=== PATIENT | female | born 1960 | race Caucasian/White ===

== ENCOUNTER 2025-04-04 07:37 | Outpatient (OUT) | payer OTHER, SELFPAY ==
--- NOTE | 2025-04-04 08:10 | PC.NURSE ---
Nursing Note Cardiac Stress Test Reviewed: Medication, allergies and patient history reviewed. Stress Test: [x ] Patient tolerated stress test well. [ ] Patient unable to tolerate walking on treadmill. Switched to Lexiscan stress test. [ x] No chest pain noted per patient [ ] Chest pain that resolved prior to leaving stress lab. [ ] No dyspnea noted. [x] Dyspnea that resolved prior to leaving stress lab. [ x] Patient left stress lab asymptomatic and hemodynamically stable. [ ] Patient taken to the Emergency Room due to non-resolving symptoms following stress test. [x ] Patient achieved target heart rate. [ ] Patient unable to achieve target heart rate. [ ] Aminophylline administered as reversal agent to Lexiscan (Regadenoson). [ ] Nitro administered. Nursing Comments:
--- NOTE | 2025-04-05 12:44 | PM.STRESS ---
Stress Test Stress Test Requesting physician: AVELINO CLAYTON Procedure: Routine treadmill exercise stress test General Information: Reason for Stress Test: [Chest pain, shortness of breath] Cardiac History and Risk Factors: [None listed] Resting 12 - Lead Electrocardiogram: Normal sinus rhythm Normal ECG Stress Test: Protocol: [Brice] Exercise Capacity: [Average] Blood Pressure Response: [Normal resting blood pressure appropriate response to exercise] Rhythm: [Sinus, no significant arrhythmias] ST - Response: [No significant ST-T wave abnormalities] Patient Response: [No chest pain] The patient exercised for 6 minutes and 59 seconds reaching stage 3 of the Brice protocol. Maximum METS 9.90. Resting heart rate 77 bpm increasing to a maximum of 134 bpm which is 85% of maximal predicted heart rate. Resting blood pressure was 112/68 with a peak blood pressure of 144/80. Interpretation: 1. Normal treadmill exercise stress test. 2. No ischemic ST-T wave abnormalities. 3. Appropriate heart rate and blood pressure response to exercise. 4. Morse treadmill score is +6.6. Estimated 1 year mortality: 0.5 to 0.6%. Risk category: Low risk. Angiography: Usually not indicated.
== END 2025-04-04 07:38 | disposition home or self-care (01) ==
PROVIDERS: PCP Family Medicine; Visit Provider Family Medicine
DX: R06.09 Other forms of dyspnea (principal); I25.10 Atherosclerotic heart disease of native coronary artery without angina pectoris; I25.84 Coronary atherosclerosis due to calcified coronary lesion
CPT/HCPCS: 93017

== ENCOUNTER 2025-04-10 07:07 | Outpatient (OUT) | payer OTHER, SELFPAY ==
--- OUTSIDE RECORDS SUMMARY | 2016-02-13 01:32 | XMS_ITS | Encounter Summary ---
Author Organization [facility] Address [address] [place] [address] Care Team Providers Care Cutter Grind Tool Technician Name Role Phone Prasad Melchor MD Primary Care Provider Encounter Details Date Type Department Care Team (Late st Contact Info) Description 02/13/2016 1:32 AM EDT Hospital Encounter [facility] [address] [place], [place] [id number] Prasad Melchor MD [address] [address] Social History Tobacco Use Types Packs/Day Years Used Date Smoking Tobacco: Former Cigarettes Q uit: 11/15/2002 Smokeless Tobacco: Never Comments No Sex and Gender Information Value Date Recorded Sex Assigned at Not on file Legal Sex Female 6:59 PM EST Gender Identity Not on file Sexual Orientation Not on file COVID-19 Exposure Response Date Recorded In the last month, have you been in contact with someone who was confirmed or suspected to have Coronavirus / COVID-19? No / Unsure 09/10/2021 3:51 PM EDT documented as of this encounter Plan of Treatment Not on file documented as of this encounter Procedures Procedure Name Priority Date/Time Associated Diagnosis Comments LIPID PANEL Routine 02/13/2016 9:58 AM EDT COMPREHENSIVE METABOLIC PANEL Routine 02/13/2016 9:58 AM EDT documented in this encounter Results * Lipid Panel (02/13/2016 9:58 AM EDT) Cholesterol 185 <200 mg/dL 02/13/2016 11:22 AM EDT [facility] Comment: Cholesterol Guidelines: <200 Desirable 200-240 Borderline >240 Undesirable HDL 60 >40 mg/dL 02/13/2016 11:22 AM EDT [facility] Comment: HDL Guidelines: <40 Undesirable 40-59 Borderline >59 Desirable LDL Cholesterol 103 0 - 130 mg/dL 02/13/2016 11:22 AM EDT [facility] Comment: LDL Guidelines: <100 Desirable 100-129 Near to/above Desirable 130-159 Borderline >159 Undesirable Direct (measured) LDL and calculated LDL are not interchangeable tests. Chol/HDL Ratio 3.1 <5 02/13/2016 11:22 AM EDT [facility] Comment: Triglycerides 108 <150 mg/dL 02/13/2016 11:22 AM EDT [facility] Comment: Triglyceride Guidelines: <150 Desirable 150-199 Borderline 200-499 High >499 Very high Based on AHA Guidelines for fasting triglyceride, August 2012. Performed at [address] [place] [address] ([phone] VLDL NOT REPORTED 1 - 30 mg/dL [facility] 02/13/2016 9:58 AM EDT 02/13/2016 9:59 AM EDT us Prasad Melchor MD CHEMISTRY ORDERABLES Final R esult [facility] [address] [place] [address], [facility] [phone] [facility] * Comprehensive Metabolic Panel (02/13/2016 9:58 AM EDT) Glucose 88 70 - 99 mg/dL 02/13/2016 11:22 AM EDT [facility] BUN 13 6 - 20 mg/dL 02/13/2016 11:22 AM EDT [facility] Creatinine 0.67 0.50 - 0.90 mg/dL 02/13/2016 11:22 AM EDT [facility] BUN/Creatinine Ratio 19 9 - 20 02/13/2016 11:22 AM EDT [facility] Calcium 9.6 8.6 - 10.4 mg/dL 02/13/2016 11:22 AM EDT [facility] Sodium 142 135 - 144 mmol/L 02/13/2016 11:22 AM EDT [facility] Potassium 5.0 3.7 - 5.3 mmol/L 02/13/2016 11:22 AM EDT [facility] Chloride 104 98 - 107 mmol/L 02/13/2016 11:22 AM EDT [facility] CO2 29 20 - 31 mmol/L 02/13/2016 11:22 AM EDT [facility] Anion Gap 9 9 - 17 mmol/L 02/13/2016 11:22 AM EDT [facility] Alkaline Phosphatase 55 35 - 104 U/L 02/13/2016 11:22 AM EDT [facility] ALT 15 5 - 33 U/L 02/13/2016 11:22 AM EDT [facility] AST 19 <32 U/L 02/13/2016 11:22 AM EDT [facility] Total Bilirubin 0.39 0.3 - 1.2 mg/dL 02/13/2016 11:22 AM EDT [facility] Total Protein 6.7 6.4 - 8.3 g/dL 02/13/2016 11:22 AM EDT [facility] Albumin 4.3 3.5 - 5.2 g/dL 02/13/2016 11:22 AM EDT [facility] Albumin/Globulin Ratio 1.8 1.0 - 2.5 02/13/2016 11:22 AM EDT [facility] GFR Non- >60 >60 mL/min 02/13/2016 11:22 AM EDT [facility] GFR >60 >60 mL/min 02/13/2016 11:22 AM EDT [facility] GFR Comment 02/13/2016 11:22 AM EDT [facility] Comment: Average GFR for 50-59 years old: 93 mL/min/1.73sq m Chronic Kidney Disease: <60 mL/min/1.73sq m Kidney failure: <15 mL/min/1.73sq m GFR Staging 02/13/2016 11:22 AM EDT [facility] Comment: Stage 1: Some kidney damage normal GFR Stage 2: Mild kidney damage GFR 60-89 Stage 3: Moderate kidney damage GFR 30-59 Stage 4: Severe kidney damage GFR 15-29 Stage 5: Severe kidney damage GFR <15 ESRD - chronic treatment by dialysis or transplant Performed at [address] [place] [address] ([phone] 02/13/2016 9:58 AM EDT 02/13/2016 9:59 AM EDT Prasad Melchor MD CHEMISTRY ORDERABLES Final R esult [facility] [address] [place], [place] [id number] [phone] [facility] documented in this encounter Visit Diagnoses Not on filedocumented in this encounter Additional Health Concerns Infection Onset Date Last Indicated Resolved Time COVID-19 (Rule Out) 09/10/2021 09/10/2021 09/10/20 21 5:48 PM EDT documented as of this encounter Care Teams Cutter Grind Tool Technician Relationship Specialty Start Date End Date Prasad Melchor MD PCP - General 10/01/14 documented as of this encounter
--- OUTSIDE RECORDS SUMMARY | 2025-04-02 15:00 | XMS_ITS | Encounter Summary ---
Author Organization [facility] Address [address] [place] [address] Care Team Providers Care Technical Producer Name Role Phone Prasad Melchor MD Primary Care Provider [phone] Reason for Referral * Imaging (Routine) - Authorized Specialty Diagnoses / Procedures Referred By Contac t Referred To Contact Radiology Diagnoses Coronary atherosclerosis due to calcified coronary lesion (CMS/HCC) Dyspnea on exertion Procedures STRESS TEST TREADMILL Prasad Melchor MD 112 [facility] [address] [place] [address] Phone: tel: fax: Referral ID Status Reason Start Date Expiration Date V isits Requested Visits Authorized [id number] Authorized 04/02/2025 09/29/2025 1 1 Reason for Visit * Reason Comments Anxiety Encounter Details Date Type Department Care Team (Late st Contact Info) Description 04/02/2025 3:00 PM EDT Office Visit [facility] [address] [facility] [address] [place] [address] Prasad Melchor MD 112 [facility] [address] [place] [address] (Fax) Anxiety associated with depression (Primary Dx); Degenerative disc disease, cervical; Spondylosis of cervical region without myelopathy or radiculopathy; Spondylosis of lumbar region without myelopathy or radiculopathy; Primary osteoarthritis of right hip; Menopausal and female climacteric states; Stage 2 chronic kidney disease; Screening for diabetes mellitus; Screening, lipid; Coronary atherosclerosis due to calcified coronary lesion (CMS/HCC); Dyspnea on exertion; Abnormal abdominal CT scan; Renal mass, right Social History Tobacco Use Types Packs/Day Years Used Date Smoking Tobacco: Former Cigarettes Q uit: 2001 Smokeless Tobacco: Never Tobacco Cessation:Counseling Given: Yes Alcohol Use Standard Drinks/Week Comments Not Currently 0 (1 standard drink = 0.6 oz pure alcohol) Caffeine intake: 1-2 cups of coffee per day Education Answer Date Recorded What is the highest level of school you have completed or the highest degree you have received? High school graduate 05/26/2023 Comments No Sex and Gender Information Value Date Recorded Sex Assigned at Not on file Legal Sex Female 6:35 PM EDT Gender Identity Not on file Sexual Orientation Not on file documented as of this encounter Last Filed Vital Signs Vital Sign Reading Time Taken Comments Blood Pressure - - Pulse - - Temperature - - Respiratory Rate - - Oxygen Saturation - - Inhaled Oxygen Concentration - - Weight 59.4 kg (131 lb) 04/02/2025 3:00 PM EDT Height 170.2 cm (5' 7 ) 04/02/2025 3:00 PM EDT Body Mass Index 20.52 04/02/2025 3:00 PM EDT documented in this encounter Progress Notes * Prasad Melchor MD - 04/02/2025 3:00 PM EDT Images from the original note were not included. Patient ID: Elsy Loza is a 64 y.o. female who presents for: Anxiety Patient is here for evaluation of anxiety. He/She has the following anxiety symptoms: none. Onset of symptoms was approximately several years ago. Symptoms have been stable since that time. He/She denies current suicidal and homicidal ideation. Family history significant for no psychiatric illness.Possible organic causes contributing are: none. Previous treatment includes medication Prozac and Xanax. He/She complains of the following medication side effects: none. I did have a brief phone call with the patient on Wednesday to review some of her previous diagnostic evaluation in an effort to help her not be as anxious over the weekend. We are formalizing this at today's visit. The left kidney is virtually absent. The right kidney does demonstrate some sort of a mass with stranding at the top. 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 At this point since she is down to 1 kidney and in chronic kidney disease stage 2, we will go ahead and dedicate a renal ultrasound to this for more definitive answer. She also continues to have this dyspnea. It is mostly on exertion and relieved with rest. There wasa problem getting her PFT scheduled. My medical photographer has specifically reached out and talked to the material yard clerk and they will be getting this scheduled. However, she is a previous smoker in the CT scan did clearly demonstrate some coronary atherosclerosis due to calcified coronary lesions. She also has a mild dyslipidemia. At this point in time we will go ahead and pursue exercise stress test. She has not no specific indication for Cardiolite imaging. Review of Systems She is sleeping for the most part when she takes a Flexeril. This helped her significantly she was able to get more comfortable and it did have the side effect of increasing sedation little bit. She was not hung over by the medication. She did not feel that she was at any risk of dysfunction. Objective Appearance: Well-groomed, in no acute distress Abnormal body movements: None Affect: Appropriate and appears to be full range Attention: Good Attitude: Cooperative Degree of awareness of surroundings: Grossly within normal limits Impulse control: Appears to be good Insight: Appears to be good Fund of knowledge; adequate Judgment: Appears to be adequate Perceptual disorders: No perceptual disorders noted Psychomotor activity: Within normal range Speech: Clear, normal variability and rate Thought content: Unremarkable 02/16/2023 12:00 PM 05/27/2023 10:37 AM 10/18/2023 3:17 PM 03/08/2024 8:07 AM 10/02/2024 7:54 AM 02/01/2025 10:01 AM 03/08/2025 10:54 AM Vitals BMI 22.24 kg/m2 20.52 kg/m2 20.52 kg/m2 20.52 kg/m2 20.52 kg/m2 20.52 kg/m2 20.52 kg/m2 BSA (m2) 1.74 m2 1.68 m2 1.68 m2 1.68 m2 1.68 m2 1.68 m2 1.68 m2 Heart Rate 77 SpO2 97 % Temp 99.9 ??F Height (in) 5' 7 5' 7 5' 7 5' 7 5' 7 5' 7 5' 7 Weight (lb) 142 131 131 131 131 131 131 Visit Report Report Report Report Report Report Report No Known Allergies Current Outpatient Medications on File Prior to Visit Medication Sig Dispense Refill albuterol HFA 90 mcg/act inhaler Inhale 2 puffs in the morning and 2 puffs at noon and 2 puffs in the evening and 2 puffs before bedtime. 18 g 0 albuterol HFA 90 mcg/act inhaler Inhale 2 puffs every 4 (four) hours if needed for wheezing or shortness of breath 18 g 0 alpha tocopherol (Vitamin E) 400 units capsule Take 400 Units by mouth in the morning. Ascorbic Acid (vitamin C) 1000 MG tablet Take 1,000 mg by mouth in the morning and 1,000 mg in the evening and 1,000 mg before bedtime. azithromycin (Zithromax) 250 MG tablet Take 2 tablets day one then 1 tablet daily 6 tablet 0 calcium citrate 250 MG tablet Take 250 mg by mouth in the morning and 250 mg in the evening and 250mg before bedtime. cholecalciferol (Vitamin D-3) 50 MCG (2000 UT) tablet Take 1 capsule by mouth Daily cyclobenzaprine (Flexeril) 10 MG tablet Take 1 tablet (10 mg) by mouth 3 (three) times a day as needed for muscle spasms 270 tablet 0 estradiol (Climara) 0.06 MG/24HR Place 1 patch over 7 days on the skin 1 (one) time per week 12 patch 1 FLUoxetine (PROzac) 20 MG capsule Take 1 capsule (20 mg) by mouth Daily 90 capsule 1 meloxicam (Mobic) 15 MG tablet Take 1 tablet (15 mg) by mouth Daily as needed for moderate pain 90 tablet 0 Menaquinone-7 (Vitamin K2) 100 MCG capsule Take 1 capsule by mouth Daily predniSONE (Deltasone) 10 MG tablet Every 2 day tapering dose; 5,5,4,4,3,3,2,2,1,1,0.5,0.5 31 tablet 0 progesterone 100 MG capsule Take 1 capsule Daily for 10 days every 3 months. 10 capsule 3 Spacer/Aero-Holding Chambers (Pro Comfort Spacer Adult) misc Use with HFA spacer. May substitute with any brand. 1 each 0 STRONTIUM CITRATE Take 1 tablet by mouth Daily zinc 50 MG tablet Take by mouth Daily No current facility-administered medications on file prior to visit. 1. Anxiety associated with depression (Primary) Chronic problem that is stable and she overall is doing very well. She has successfully weaned and discontinued the Xanax. - FLUoxetine (PROzac) 20 MG capsule; Take 1 capsule (20 mg) by mouth Daily Dispense: 90 capsule; Refill: 1 2. Degenerative disc disease, cervical Chronic problem that is improving with the physical therapy and home exercise program. She still has trouble in the evening getting comfortable and did get the relief from the Flexeril. I see no reason not to continue her Flexeril in the evening. This also helps to cross treat her mild sleep maintenance dysfunction. 3. Spondylosis of cervical region without myelopathy or radiculopathy As above - cyclobenzaprine (Flexeril) 10 MG tablet; Take 1 tablet (10 mg) by mouth in the evening Dispense: 90 tablet; Refill: 1 4. Spondylosis of lumbar region without myelopathy or radiculopathy As above - cyclobenzaprine (Flexeril) 10 MG tablet; Take 1 tablet (10 mg) by mouth in the evening Dispense: 90 tablet; Refill: 1 5. Primary osteoarthritis of right hip As above and part of her chronic pain 6. Menopausal and female climacteric states In prescribing a renewal to their current medication, consideration of the following encompasses moderate decision making; the current prescriptions and supplements, the current allergies and medication intolerances, current medical conditions, and potential drug interactions. Any changes to risks, benefits, and reason for renewing their current medication due to the above were discussed. The patient was given a chance to ask questions today and all questions were answered. The patient is to contact us if any other questions arise or if any problems occur. (Utilizing the original 1994/1996 guidelines or the 2020 office/outpatient code guidelines for selecting the level of E/M service, In both sets of guidelines, prescription drug management appears in the moderate medical decision making (MDM) row. Neither the original guidelines nor the new guidelines state that a new prescription or change is needed in order to credit prescription drug management) - progesterone 100 MG capsule; Take 1 capsule Daily for 10 days every 3 months. Dispense: 10 capsule; Refill: 2 7. Stage 2 chronic kidney disease - Comprehensive metabolic panel; Future - Comprehensive metabolic panel 8. Screening for diabetes mellitus - Comprehensive metabolic panel; Future - Comprehensive metabolic panel 9. Screening, lipid - Lipid panel; Future - Lipid panel 10. Coronary atherosclerosis due to calcified coronary lesion (CMS/HCC) As discussed above in the review of systems we should pursued further diagnostic evaluation. - Lipid panel; Future - Lipid panel - STRESS TEST TREADMILL; Future - STRESS TEST TREADMILL 11. Dyspnea on exertion As above and PFT already scheduled. - STRESS TEST TREADMILL; Future - STRESS TEST TREADMILL 12. Abnormal abdominal CT scan Chronic problem that appears worse by this CT scan and raises some questions with the stranding noted. Recommendation by Radiology for dedicated ultrasound. - US renal complete; Future 13. Renal mass, right - Comprehensive metabolic panel; Future - Comprehensive metabolic panel - US renal complete; Future documented in this encounter Plan of Treatment Scheduled Orders Name Type Priority Associated Diagnoses Orde r Schedule Comprehensive metabolic panel Lab Routine Stage 2 chronic kidney disease Screening for diabetes mellitus Renal mass, right Expected: 04/02/2025 (Approximate), Expires: 04/02/2026 Lipid panel Lab Routine Screening, lipid Coronary atherosclerosis due to calcified coronary lesion (CMS/HCC) Expected: 04/02/2025 (Approximate), Expires: 04/02/2026 US renal complete Imaging Routine Abnormal abdominal CT scan Renal mass, right Expected: 04/02/2025, Expires: 04/02/2026 STRESS TEST TREADMILL Imaging Routine Coronary atherosclerosis due to calcified coronary lesion (CMS/HCC) Dyspnea on exertion Expected: 04/02/2025 (Approximate), Expires: 04/02/2026 documented as of this encounter Visit Diagnoses Diagnosis Anxiety associated with depression- Primary Dysthymic disorder Degenerative disc disease, cervical Spondylosis of cervical region without myelopathy or 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 Primary osteoarthritis of right hip Menopausal and female climacteric states Stage 2 chronic kidney disease Screening for diabetes mellitus Screening, lipid Coronary atherosclerosis due to calcified coronary lesion (CMS/HCC) Dyspnea on exertion Other dyspnea and respiratory abnormality Abnormal abdominal CT scan Nonspecific (abnormal) findings on radiological and other examination of abdominal area, including retroperitoneum Renal mass, right Unspecified disorder of kidney and ureter documented in this encounter Care Teams Technical Producer Relationship Specialty Start Date End Date Prasad Melchor MD PCP - General Family Medicine 05/24/23 documented as of this encounter
--- NOTE | 2025-04-10 | US_ITS ---
The [address] [address] Patient Name: LUANN STEVENS MRN: [id number] date: 1960 Sex: F Assigned Patient Location: US Current Patient Location: US Accession/Order Number: [id number] Exam Date: 04/10/2025 09:25 Report Date: 04/10/2025 09:36 At the request of: AVELINO CLAYTON Procedure: US renal bladder BILATERAL RENAL AND BLADDER ULTRASOUND CLINICAL HISTORY: Right renal mass seen on CT N28.89 COMPARISON: None Estimation of right renal size is approximately 11.4 cm on the right. The left kidney is atrophic and echogenic. The margins are not well demonstrated. There are multiple clustered cysts at the left kidney measuring up to 2.7 cm in size. No shadowing calculi or hydronephrosis are identified. No renal mass lesions were imaged on the right. There is no perinephric fluid. The urinary bladder is partially distended with a volume of 139 ml. No contour or intraluminal abnormalities are seen. A right ureteral jet was visualized however the left was not seen. The post void bladder residual is 11 mL. US/US renal bladder IMPRESSION: NO OBSTRUCTIVE UROPATHY. ATROPHIC LEFT KIDNEY WITH CYSTS. NO OBVIOUS RIGHT RENAL MASSES. THE SIGNIFICANCE OF THE REPORTED RIGHT RENAL MASS IS UNKNOWN GIVEN THE ABSENCE OF PRIORS AND NO DETAILS REGARDING THE FINDING. Impression dictated by: Laura Gilbert M.D. 04/10/2025 9:36 AM Dictation Location: [place] [address] Electronically authenticated by: [id number] Y Date: 04/10/2025 09:36
--- OUTSIDE RECORDS SUMMARY | 2025-04-10 07:09 | XMS_ITS | Encounter Summary ---
Author Organization [facility] Address [address] [place] [address] Care Team Providers Care Shipping Manager Name Role Phone Prasad Melchor MD Primary Care Provider [phone] Encounter Details Date Type Department Care Team (Late st Contact Info) Description 03/29/2025 Orders Only [facility] [address] [place] [id number] Prasad Melchor MD [address] [place] [address] (Fax) Coronary artery arteriosclerosis (CMS/HCC) (Primary Dx); Dyspnea on exertion; Chronic renal impairment, stage 2 (mild); Abnormal finding on diagnostic imaging of right kidney; Bronchiectasis without complication (CMS/HCC) Social History Tobacco Use Types Packs/Day Years Used Date Smoking Tobacco: Former Cigarettes Q uit: 2001 Smokeless Tobacco: Never Alcohol Use Standard Drinks/Week Comments Not Currently [...] on file documented as of this encounter Progress Notes * Prasad Melchor MD - 03/29/2025 1:08 PM EDT February, can you follow-up And order as appropriate on all this. I called the patient discussed the CT results with her. I did review there maybe some mild bronchiectasis, but I do not think at this point in time we needto pursue this any further and we can watch this linearly. She has not heard anything back about her pulmonary function testing and I will have my medical sociologist follow-up on this as there is an active order. We reviewed the CT scan and she does have the dyspnea with exertion that resolves with rest and by CT scan she has coronary artery atherosclerosis. At this point she should have diagnostic evaluationwith an exercise stress test. She would prefer to get this done it [facility]. 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 The right kidney has had some vague descriptions on previous CT scans but she has not had a dedicated ultrasound to evaluate the right kidney further. Inview of the fact that she has chronic kidney disease and most likely complete absence of functioning on the left kidney we will order a dedicated renal ultrasound to be done at [facility]. documented in this encounter Plan of Treatment Not on file documented as of this encounter Visit Diagnoses Diagnosis Coronary artery arteriosclerosis (CMS/HCC)- Primary Coronary atherosclerosis of unspecified type of vessel, [place] or graft Dyspnea on exertion Other dyspnea and respiratory abnormality Chronic renal impairment, stage 2 (mild) Abnormal finding on diagnostic imaging of right kidney Bronchiectasis without complication (CMS/HCC) documented in this encounter Care Teams Shipping Manager Relationship Specialty Start Date End Date Prasad Melchor MD PCP - General Family Medicine 05/24/23 documented as of this encounter
--- OUTSIDE RECORDS SUMMARY | 2025-04-10 07:09 | XMS_ITS | Encounter Summary ---
Author Organization [facility] Address [address] [place] [address] [address] Care Ct Tech Name Role Phone Prasad Melchor MD Primary Care Provider [phone] Encounter Details Date Type Department Care Team (Late st Contact Info) Description 04/02/2025 Bamboo flowsheet [facility] [address] [place] [address] Prasad Melchor MD [address] [place] [address] Social History Tobacco Use Types Packs/Day Years Used Date Smoking Tobacco: Former Cigarettes Q uit: 2002 Smokeless Tobacco: Never Alcohol Use Standard Drinks/Week [...] on file documented as of this encounter Plan of Treatment Not on file documented as of this encounter Visit Diagnoses Not on filedocumented in this encounter Care Teams Ct Tech Relationship Specialty Start Date End Date Prasad Melchor MD PCP - General Family Medicine 05/24/23 documented as of this encounter
--- OUTSIDE RECORDS SUMMARY | 2025-04-10 07:09 | XMS_ITS | Encounter Summary ---
Author Organization [facility] Address [address] [place] [address] Care Team Providers Care Openstack Cloud Consulting Architect Name Role Phone Prasad Melchor MD Primary Care Provider [phone] Encounter Details Date Type Department Care Team (Late st Contact Info) Description 10/02/2024 Abstract [facility] [address] [place] [address] Prasad Melchor MD [address] [place] [address] Social History Tobacco Use Types Packs/Day Years [...] on filedocumented in this encounter Care Teams Openstack Cloud Consulting Architect Relationship Specialty Start Date End Date Prasad Melchor MD PCP - General Family Medicine 05/24/23 documented as of this encounter
--- OUTSIDE RECORDS SUMMARY | 2025-04-10 07:09 | XMS_ITS | Clinical Summary ---
Author Organization [facility] Address [address] [place] [address] Care Team Providers Care Audio Visual Coordinator Name Role Phone Prasad Melchor MD Primary Care Provider [phone] Allergies No known active allergies Medications FLUoxetine (PROZAC) 20 MG capsule Take 20 mg by mouth daily. Active Multiple Vitamins-Minera ls (THERAPEUTIC MULTIVITAMIN-RI NERALS) tablet Take 1 tablet by mouth daily. Active vitamin E 400 UNIT capsule Take 400 Units by mouth daily. Active vitamin D 1000 UNITS CAPS Take 1 capsule by mouth daily. Active calcium carbonate 600 MG TABS tablet Take 1 tablet by mouth daily Active budesonide-form oterol (SYMBICORT) 160-4.5 MCG/ACT AERO Inhale 2 puffs into the lungs 2 times daily Active Active Problems Problem Noted Date Diagnosed Date Pneumonia due to COVID-19 virus 12/11/2020 Hiatal hernia Postmenopause Kidney congenitally absent, left Gastritis Family History Medical History Relation Name Comments Cancer Mother throat Relation Name Status Comments Mother Social History Tobacco Use Types Packs/Day Years Used Date Smoking Tobacco: Former Cigarettes Q uit: 11/15/2002 Smokeless Tobacco: Never Comments No Sex and Gender Information Value Date Recorded Sex Assigned at Not on file Legal Sex Female 6:59 PM EST Gender Identity Not on file Sexual Orientation Not on file Last Filed Vital Signs Vital Sign Reading Time Taken Comments Blood Pressure 138/65 09/10/2021 6:45 PM EDT Pulse 58 09/10/2021 6:45 PM EDT Temperature 36.2 C (97.1 F) 09/10/2021 3:50 PM EDT Respiratory Rate 17 09/10/2021 6:45 PM EDT Oxygen Saturation 99% 09/10/2021 6:45 PM EDT Inhaled Oxygen Concentration - - Weight 61.2 kg (135 lb) 09/10/2021 3:50 PM EDT Height 170.2 cm (5' 7 ) 09/10/2021 3:50 PM EDT Body Mass Index 21.14 09/10/2021 3:50 PM EDT Plan of Treatment Not on file Insurance [facility] [place]AREN VARGAS [facility] Advance Directives Healthcare Agents on File Name Relationship Healthcare Agent Relationshi p Communication Aly Loza Spouse Primary Decision Maker Thais Gupta Brother/Sister Secondary Decision Maker Care Teams Audio Visual Coordinator Relationship Specialty Start Date End Date Prasad Melchor MD PCP - General 10/01/14
--- OUTSIDE RECORDS SUMMARY | 2025-04-10 07:09 | XMS_ITS | Clinical Summary ---
Author Organization [facility] Address [id number] [address] [place] [address] Care Team Providers Care Onion Farmer Name Role Phone Prasad Melchor MD Primary Care Provider [phone] Allergies No known active allergies Medications FLUoxetine (PROzac) 10 mg capsule Take 10 mg by mouth daily. Active Social History Tobacco Use Types Packs/Day Years Used Date Smoking Tobacco: Former Smokeless Tobacco: Never Alcohol Use Standard Drinks/Week Comments Yes 0 (1 standard drink = 0.6 oz pur e alcohol) RARELY Childcare Answer Date Recorded Childcare Unknown 10/11/2020 Employment Answer Date Recorded Employment Unknown 10/11/2020 Purpose - Life Answer Date Recorded Purpose and direction in life Unknown Comments No Sex and Gender Information Value Date Recorded Sex Assigned at Not on file Legal Sex Female 11:23 AM EDT Gender Identity Not on file Sexual Orientation Not on file Last Filed Vital Signs Vital Sign Reading Time Taken Comments Blood Pressure 120/79 10/11/2020 6:07 AM EST Pulse 83 10/11/2020 6:07 AM EST Temperature 36.3 C (97.3 F) 10/11/2020 12:38 AM EST Respiratory Rate 16 10/11/2020 6:07 AM EST Oxygen Saturation 99% 10/11/2020 6:07 AM EST Inhaled Oxygen Concentration - - Weight 59 kg (130 lb) 10/11/2020 12:38 AM EST Height 170.2 cm (5' 7 ) 10/11/2020 12:38 AM EST Body Mass Index 20.36 10/11/2020 12:38 AM EST Plan of Treatment Health Maintenance Due Date Last Done Comments Depression Screening 1973 Tobacco Screening 1973 Adult BMI Screening 1979 DTaP,Tdap and Td Vaccines (1 - Tdap) 1980 Pap Smear 1982 Zoster (Shingles) Vaccine (1 of 2) 2011 Influenza Vaccine 07/16/2025 Medical Devices Not on file Care Teams Onion Farmer Relationship Specialty Start Date End Date Prasad Melchor MD PCP - General Family Medicine 10/11/20
--- OUTSIDE RECORDS SUMMARY | 2025-04-10 07:09 | XMS_ITS | Clinical Summary ---
Author Organization [facility] Healthcare Address [address] [place] [address] Care Team Providers Care Master Merchandiser Name Role Phone Prasad Melchor MD Primary Care Provider + [phone] Allergies No known active allergies Medications Ascorbic Acid (vitamin C) 1000 MG tablet Take 1,000 mg by mouth in the morning and 1,000 mg in the evening and 1,000 mg before bedtime. Active cholecalciferol (Vitamin D-3) 50 MCG (1999 UT) tablet Take 1 capsule by mouth Daily Active alpha tocopherol (Vitamin E) 400 units capsule Take 400 Units by mouth in the morning. Active albuterol HFA 90 mcg/act inhalerIndications :Acute viral syndrome Inhale 2 puffs in the morning and 2 puffs at noon and 2 puffs in the evening and 2 puffs before bedtime. 18 g 10/18/20 23 Active calcium citrate 250 MG tablet Take 250 mg by mouth in the morning and 250 mg in the evening and 250 mg before bedtime. Active zinc 50 MG tablet Take by mouth Daily Active STRONTIUM CITRATE Take 1 tablet by mouth Daily Active Menaquinone-7 (Vitamin K2) 100 MCG capsuleIndications :Age-related osteoporosis without current pathological fracture (CMS/HCC) Take 1 capsule by mouth Daily 03/19/20 24 Active estradiol (Climara) 0.06 MG/24HRIndications :Menopausal and female climacteric states Place 1 patch over 7 days on the skin 1 (one) time per week 12 patch 1 01/19/20 25 025 Active meloxicam (Mobic) 15 MG tabletIndications: Degenerative disc disease, cervical,Spondylos is of cervical region without myelopathy or radiculopathy,Spon dylosis of lumbar region without myelopathy or radiculopathy,Prim gabino osteoarthritis of right hip Take 1 tablet (15 mg) by mouth Daily as needed for moderate pain 90 tablet 02/07/20 25 025 Active Spacer/Aero-Holdin g Chambers (Pro Comfort Spacer Adult) miscIndications:SO CHASE (shortness of breath on exertion) Use with HFA spacer. May substitute with any brand. 1 each 03/07/20 Active albuterol HFA 90 mcg/act inhalerIndications :SOBOE (shortness of breath on exertion) Inhale 2 puffs every 4 (four) hours if needed for wheezing or shortness of breath 18 g 03/07/20 Active FLUoxetine (PROzac) 20 MG capsuleIndications :Anxiety associated with depression Take 1 capsule (20 mg) by mouth Daily 90 capsule 1 04/02/20 25 025 Active progesterone 100 MG capsuleIndications :Menopausal and female climacteric states Take 1 capsule Daily for 10 days every 3 months. 10 capsule 2 04/02/20 25 Active cyclobenzaprine (Flexeril) 10 MG tabletIndications: Spondylosis of cervical region without myelopathy or radiculopathy,Spon dylosis of lumbar region without myelopathy or radiculopathy Take 1 tablet (10 mg) by mouth in the evening 90 tablet 1 04/02/20 25 025 Active FLUoxetine (PROzac) 20 MG capsuleIndications :Anxiety associated with depression Take 1 capsule (20 mg) by mouth Daily 90 capsule 1 09/26/20 24 025 Discontin ued(Reord er) progesterone 100 MG capsuleIndications :Menopausal and female climacteric states Take 1 capsule Daily for 10 days every 3 months. 10 capsule 3 11/27/19 25 025 Discontin ued(Reord er) azithromycin (Zithromax) 250 MG tabletIndications: Upper respiratory tract infection, unspecified type Take 2 tablets day one then 1 tablet daily 6 tablet 12/27/19 25 025 Discontin ued(Thera py completed ) predniSONE (Deltasone) 10 MG tabletIndications: Degenerative disc disease, cervical,Spondylos is of cervical region without myelopathy or radiculopathy,Spon dylosis of lumbar region without myelopathy or radiculopathy,Prim gabino osteoarthritis of right hip Every 2 day tapering dose; 5,5,4,4,3,3,2, 2,1,1,0.5,0.5 31 tablet 02/07/20 25 025 Discontin ued(Thera py completed ) cyclobenzaprine (Flexeril) 10 MG tabletIndications: Acute bilateral low back pain with right-sided sciatica Take 1 tablet (10 mg) by mouth 3 (three) times a day as needed for muscle spasms 270 tablet 02/07/20 25 025 Discontin ued(Reord er) Active Problems Problem Noted Date Diagnosed Date Bronchiectasis without complication 03/29/2025 Degenerative disc disease, cervical 02/03/2025 Overview (02/03/2025): x-ray January 2025; primarily C5 through C7. 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 Congenital absence of left kidney 05/25/2023 Dermatitis due to food taken internally 05/25/20 23 Menopausal and female climacteric states 023 Osteopenia 05/25/2023 Osteoporosis 05/25/2023 Sleep initiation disorder 05/25/2023 Stage 2 chronic kidney disease 05/25/2023 Vitamin D deficiency 05/25/2023 Anxiety associated with depression 05/24/2023 Resolved Problems Problem Noted Date Diagnosed Date Resolved Date Controlled substance agreement signed 07/11/2024 04/03/2025 Encounters Date Type Department Care Team Description 04/02/2025 3:00 PM EDT Office Visit [facility] [address] [facility] [address] [place] [address] Prasad Melchor MD Anxiety associated with depression (Primary Dx); Degenerative [...] Abnormal abdominal CT scan; Renal mass, right 04/02/2025 Bamboo flowsheet [facility] [address] [place] [place] [address] Prasad Melchor MD 04/02/2025 Travel 03/29/2025 Telephone [facility] [address] [place] [place] [address] Tiffany Yost MA Results 03/29/2025 Orders Only [facility] [address] [place] [place] [address] Prasad Melchor MD Coronary artery arteriosclerosis (CMS/HCC) (Primary Dx); Dyspnea on exertion; Chronic renal impairment, stage 2 (mild); Abnormal finding on diagnostic imaging of right kidney; Bronchiectasis without complication (CMS/HCC) 03/26/2025 10:30 AM EDT Ancillary Procedure [facility] [address] [place] [id number] 03/26/2025 9:00 AM EDT Treatment [facility] [address] [place] [address] Figueroa Perry, PT Acute bilateral low back pain with right-sided sciatica (Primary Dx); Neck pain; Right hip pain 03/26/2025 Bamboo flowsheet [facility] [address] [place] [address] Figueroa Perry, PT 03/26/2025 Travel 03/21/2025 Refill [facility] [address] [place] [place] [address] Prasad Melchor MD Anxiety associated with depression 03/19/2025 9:00 AM EDT Treatment [facility] [address] [place] [address] Figueroa Perry T, PT Acute bilateral low back pain with right-sided sciatica (Primary Dx); Neck pain; Right hip pain 03/19/2025 Bamboo flowsheet [facility] [address] [facility] [address] [place] [address] Figueroa Perry T, PT 03/19/2025 Travel 03/12/2025 9:00 AM EDT Treatment [facility] [address] [facility] [address] [place] [address] Figueroa Perry T, PT Neck pain (Primary Dx); Acute bilateral low back pain with right-sided sciatica; Right hip pain 03/12/2025 Bamboo flowsheet [facility] [address] [facility] [address] [place] [address] Figueroa Perry, PT 03/12/2025 Travel 03/08/2025 11:15 AM EDT Office Visit [facility] [address] [facility] [address] [place] [address] Prasad Melchor MD Hearing loss of both ears due to cerumen impaction (Primary Dx) 03/08/2025 Bamboo flowsheet [facility] [address] [facility] [address] [place] [address] Prasad Melchor MD 03/08/2025 Travel 03/07/2025 Orders Only [facility] [address] [facility] [address] [place] [address] Prasad Melchor MD 03/06/2025 Telephone [facility] [address] [facility] [address] [place] [address] Prasad Melchor MD Care Coordination 03/05/2025 9:00 AM EDT Treatment [facility] [address] [facility] [address] [place] [address] Figueroa Perry T, PT Neck pain (Primary Dx); Acute bilateral low back pain with right-sided sciatica; Right hip pain 03/05/2025 Bamboo flowsheet [facility] [address] [place] [address] Figueroa Perry T, PT 03/05/2025 Travel 03/01/2025 9:00 AM EDT Treatment [facility] [address] [place] [address] Figueroa Perry T, PT Neck pain (Primary Dx); Acute bilateral low back pain with right-sided sciatica; Right hip pain 03/01/2025 Bamboo flowsheet [facility] [address] [place] [address] Figueroa Perry T, PT 03/01/2025 Travel 02/21/2025 4:00 PM EDT Treatment [facility] [address] [place] [address] Figueroa Perry T, PT Neck pain (Primary Dx); Acute bilateral low back pain with right-sided sciatica; Right hip pain 02/21/2025 Bamboo flowsheet [facility] [address] [place] [address] Figueroa Perry T, PT 02/21/2025 Travel 02/19/2025 9:00 AM EDT Treatment [facility] [address] [place] [address] Figueroa Perry T, PT Neck pain (Primary Dx); Acute bilateral low back pain with right-sided sciatica; Right hip pain 02/19/2025 Bamboo flowsheet [facility] [address] [place] [address] Figueroa Perry T, PT 02/19/2025 Travel 02/14/2025 10:30 AM EDT Treatment [facility] [address] [place] [address] Figueroa Perry T, PT Neck pain (Primary Dx); Acute bilateral low back pain with right-sided sciatica; Right hip pain 02/14/2025 Bamboo flowsheet [facility] [address] [place] [address] Figueroa Perry, PT 02/14/2025 Travel 02/08/2025 8:00 AM EDT Evaluation [facility] [address] [place] [address] Figueroa Perry, PT Neck pain (Primary Dx); Acute bilateral low back pain with right-sided sciatica; Right hip pain 02/08/2025 Plan of Care Documentation [facility] [address] [place] [address] 02/08/2025 Bamboo flowsheet [facility] [address] [place] [address] Figueroa Perry, PT 02/08/2025 Travel 02/03/2025 Telephone [facility] [address] [facility] [address] [place] [address] Prasad Melchor MD Results 02/02/2025 11:00 AM EDT Ancillary Procedure [facility] [address] [place] [address] Right hip pain 02/02/2025 10:30 AM EDT Ancillary Procedure [facility] [address] [place] [address] Acute bilateral low back pain with right-sided sciatica 02/02/2025 10:00 AM EDT Ancillary Procedure [facility] [address] [place] [place] [address] Neck pain 02/02/2025 Travel 02/01/2025 10:00 AM EDT Office Visit [facility] [address] [facility] [address] [place] [address] Prasad Melchor MD Neck pain (Primary Dx); Acute bilateral low back pain with right-sided sciatica; Right hip pain 02/01/2025 Bamboo flowsheet [facility] [address] [facility] [address] [place] [address] Prasad Melchor MD 02/01/2025 Travel 01/18/2025 Telephone [facility] [address] [address] [place] [address] Prasad Melchor MD from Last 3 Months Family History Medical History Relation Name Comments Diabetes Brother Heart disease Brother Throat cancer Mother Relation Name Status Comments Brother Father Mother Sister x2 Social History Tobacco Use Types Packs/Day Years Used Date Smoking Tobacco: Former Cigarettes Q uit: 2002 Smokeless Tobacco: Never Tobacco Cessation:Counseling Given: Yes [...] Sign Reading Time Taken Comments Blood Pressure 124/72 05/01/2021 12:00 PM EDT Pulse 77 10/18/2023 3:17 PM EST Temperature 37.7 C (99.9 F) 10/18/2023 3:17 PM EST Respiratory Rate - - Oxygen Saturation 97% 10/18/2023 3:17 PM EST Inhaled Oxygen Concentration - - Weight 59.4 kg (131 lb) 04/02/2025 3:00 PM EDT Height 170.2 cm (5' 7 ) 04/02/2025 3:00 PM EDT Body Mass Index 20.52 04/02/2025 3:00 PM EDT Plan of Treatment Health Maintenance Due Date Last Done Comments CT Colonography 1961 FIT-DNA 1961 FIT 1961 FOBT 1961 Sigmoidoscopy 1961 Pap Smear 1982 Cervical Cancer Screening 1991 HPV/Cotest 1991 Mammogram 03/02/2025 03/02/2024, 01/14, 11/18/2022, Additional history exists Influenza Vaccine (Season Ended) 2025 Colonoscopy 02/16/2026 02/17/2016 Colorectal Cancer Screening 02/16/2026 Procedures Procedure Name Priority Date/Time Associated Diagnosis Comments CT CHEST WO IV CONTRAST Routine 03/26/2025 10:40 AM EDT SOBOE (shortness of breath on exertion) Chronic fatigue Former smoker XR CERVICAL SPINE 2-3 VIEWS Routine 02/02/2025 12:11 PM EDT Neck pain XR LUMBAR SPINE 2-3 VIEWS Routine 02/02/2025 12:11 PM EDT Acute bilateral low back pain with right-sided sciatica XR HIP 2 OR 3 VW RIGHT Routine 12:10 PM EDT Right hip pain BI MAMMOGRAM SCREENING TOMOSYNTHESIS BILATERAL Routine 03/02/2024 11:53 AM EDT Screening mammogram for breast cancer COLONOSCOPY Routine 02/17/2016 12:00 PM EDT from Last 3 Months or Most Recently Relevant to Health Maintenance Results * CT chest wo IV contrast (03/26/2025 10:40 AM EDT) Anatomical Region Laterality Modality Body, Chest Computed Tomogra phy 2025 4:40 PM EDT Narrative 2025 4:40 PM EDT EXAM: CT Chest Without IV Contrast. REASON FOR EXAM: Shortness of breath, chronic fatigue. COMPARISON: CT chest January 12, 2021. TECHNIQUE: Multiplanar noncontrast images of the chest obtained. FINDINGS: Lower neck without acute change. Scattered subcentimeter noncalcified middle mediastinal lymph nodes. Heart not enlarged. No pericardial thickening. Coronary artery calcifications are present. Images of the upper abdomen demonstrate multiple peripherally calcified partially visualized cysts of the left suprarenal space. Stranding of the right superior kidney noted with fat density and irregularity. Cholecystectomy clips are noted. Regional soft tissues are without acute abnormality. No axillary adenopathy. Osseous structures without acute change. The airways are patent and symmetric. No visualized filling defects, significant bronchial wall thickening. Mild prominence of the bronchi of the lower lobes left greater than right. The lungs are without nodule, mass, consolidation. No pleural effusion. A 2 mm right middle lobe pulmonary nodule is not significantly changed from previous CT of January 12, 2021. IMPRESSION: 1. No CT evidence of acute heart failure or pneumonia. 2. Possible subtle basilar cylindrical bronchiectasis left greater than right. Dedicated high-resolution CT of the chest recommended for further evaluation. 3. Noncalcified right middle lobe pulmonary nodule unchanged from [address] CT. Overwhelmingly a benign finding. 4. Findings suggestive of possibly an angiomyolipoma of the right kidney and multiple calcified cysts of the left kidney incompletely visualized. Dedicated renal ultrasound or CT renal mass protocol recommended. 5. Status post cholecystectomy. 6. Coronary artery disease. *This report is generated using voice recognition reporting (SaaSMAX). On occasion [employer] erroneously drops words from the report or replaces the spoken word with similar sounding words. Please call with any questions/concerns regarding this report.* Dictated and transcribed 03/27/25/dpd This report has been electronically signed and approved by the interpreting radiologist. All CT scans at this institution are performed using dose optimization techniques as appropriate for the performed exam including the following: Automated exposure control Adjustment of the mA and/or kV according to patient size Use of iterative reconstruction technique Procedure Note Dallas Bain MD - 2025 EXAM: CT Chest Without IV Contrast. REASON FOR EXAM: Shortness of breath, chronic fatigue. COMPARISON: CT chest January 12, 2021. TECHNIQUE: Multiplanar noncontrast images of the chest obtained. FINDINGS: Lower neck without acute change. Scattered subcentimeter noncalcified middle mediastinal lymph nodes. Heart not enlarged. No pericardial thickening. Coronary artery calcifications are present. Images of the upper abdomen demonstrate multiple peripherally calcifiedpartially visualized cysts of the left suprarenal space. Stranding of theright superior kidney noted with fat density and irregularity.Cholecystectomy clips are noted. Regional soft tissues are without acute abnormality. No axillaryadenopathy. Osseous structures without acute change. The airways are patent and symmetric. No visualized filling defects,significant bronchial wall thickening. Mild prominence of the bronchi ofthe lower lobes left greater than right. The lungs are without nodule, mass, consolidation. No pleural effusion. A2 mm right middle lobe pulmonary nodule is not significantly changed fromprevious CT of January 12, 2021. IMPRESSION: 1. No CT evidence of acute heart failure or pneumonia. 2. Possible subtle basilar cylindrical bronchiectasis left greater thanright. Dedicated high-resolution CT of the chest recommended for furtherevaluation. 3. Noncalcified right middle lobe pulmonary nodule unchanged from 2021 CT.Overwhelmingly a benign finding. 4. Findings suggestive of possibly an angiomyolipoma of the right kidneyand multiple calcified cysts of the left kidney incompletely visualized.Dedicated renal ultrasound or CT renal mass protocol recommended. 5. Status post cholecystectomy. 6. Coronary artery disease. *This report is generated using voice recognition reporting (SaaSMAX).On occasion [employer] erroneously drops words from the report orreplaces the spoken word with similar sounding words. Please call with anyquestions/concerns regarding this report.* Dictated and transcribed 03/27/25/dpd This report has been electronically signed and approved by theinterpreting radiologist. All CT scans at this institution are performed using dose optimizationtechniques as appropriate for the performed exam including thefollowing: Automated exposure control Adjustment of the mA and/or kV according to patient size Use of iterative reconstruction technique us Prasad Melchor MD IMG CT PROCEDURES Final Resu lt * XR cervical spine 2 or 3 views (02/02/2025 12:11 PM EDT) Anatomical Region Laterality Modality Spine, C-spine Radiographic Jaquelin ging 02/02/2025 12:3 3 PM EDT Narrative 02/02/2025 12:33 PM EDT TITLE OF EXAM: XR CERVICAL SPINE 2-3 VIEWS REASON FOR EXAM: Chronic neck pain. TECHNIQUE: 3 radiographs of the cervical spine COMPARISONS: None. FINDINGS: No fracture; normal vertebral body heights. Minimal retrolisthesis of C2 on C3, anterolisthesis of C3 on C4 and C4 on C5, and retrolisthesis of C5 on C6, 1 to 2 mm at these levels. Moderate to severe C5-6 and mild to moderate C6-7 degenerative disc disease with reduced intervertebral space and uncovertebral proliferation greatest at these levels. Right upper and mid cervical predominant facet osteoarthrosis. Anatomic atlantoaxial joints. Widely patent airway. No focal soft tissue abnormality. IMPRESSION: 1. No fracture. 2. Minimal multilevel listhesis as described, 1 to 2 mm. 3. Degenerative changes as detailed. DICTATED ON: 02/02/2025 10:31 AM This report has been electronically signed and approved by the interpreting radiologist. Procedure Note Davion Browning MD - 02/02/2025 TITLE OF EXAM: XR CERVICAL SPINE 2-3 VIEWS REASON FOR EXAM: Chronic neck pain. TECHNIQUE: 3 radiographs of the cervical spine COMPARISONS: None. FINDINGS: No fracture; normal vertebral body heights. Minimal retrolisthesis of C2on C3, anterolisthesis of C3 on C4 and C4 on C5, and retrolisthesis of C5on C6, 1 to 2 mm at these levels. Moderate to severe C5-6 and mild tomoderate C6-7 degenerative disc disease with reduced intervertebral spaceand uncovertebral proliferation greatest at these levels. Right upper andmid cervical predominant facet osteoarthrosis. Anatomic atlantoaxialjoints. Widely patent airway. No focal soft tissue abnormality. IMPRESSION: 1. No fracture. 2. Minimal multilevel listhesis as described, 1 to 2 mm. 3. Degenerative changes as detailed. DICTATED ON: 02/02/2025 10:31 AM This report has been electronically signed and approved by theinterpreting radiologist. Prasad Melchor MD IMG XR PROCEDURES Final Resu lt * XR lumbar spine 2 or 3 views (02/02/2025 12:11 PM EDT) Anatomical Region Laterality Modality Spine, L-spine Radiographic Jaquelin ging 02/02/2025 12:3 5 PM EDT Narrative 02/02/2025 12:35 PM EDT TITLE OF EXAM: XR LUMBAR SPINE 2-3 VIEWS REASON FOR EXAM: Chronic low back pain. TECHNIQUE: 3 radiographs of the lumbar spine COMPARISONS: None. FINDINGS: No fracture; normal vertebral body height. Retrolisthesis of L1 on L2, 0.4 cm, L2 on L3, 0.3 cm, and L3 on L4, 0.2 cm. Otherwise anatomic alignment of the vertebral bodies and posterior elements. Degenerative disc disease greatest at L1-2, perhaps mild to moderate. Anterior endplate proliferation and sclerosis at this level. Lower lumbar/lumbosacral facet osteoarthrosis is radiographically mild. No focal soft tissue abnormality. IMPRESSION: 1. No fracture. 2. Mild/Grade 1 multilevel listhesis as detailed. 3. Degenerative changes as described. DICTATED ON: 02/02/2025 10:32 AM This report has been electronically signed and approved by the interpreting radiologist. Procedure Note Davion Browning MD - 02/02/2025 TITLE OF EXAM: XR LUMBAR SPINE 2-3 VIEWS REASON FOR EXAM: Chronic low back pain. TECHNIQUE: 3 radiographs of the lumbar spine COMPARISONS: None. FINDINGS: No fracture; normal vertebral body height. Retrolisthesis of L1 on L2, 0.4cm, L2 on L3, 0.3 cm, and L3 on L4, 0.2 cm. Otherwise anatomic alignmentof the vertebral bodies and posterior elements. Degenerative disc diseasegreatest at L1-2, perhaps mild to moderate. Anterior endplateproliferation and sclerosis at this level. Lower lumbar/lumbosacral facetosteoarthrosis is radiographically mild. No focal soft tissueabnormality. IMPRESSION: 1. No fracture. 2. Mild/Grade 1 multilevel listhesis as detailed. 3. Degenerative changes as described. DICTATED ON: 02/02/2025 10:32 AM This report has been electronically signed and approved by theinterpreting radiologist. Prasad Melchor MD IMG XR PROCEDURES Final Resu lt * XR hip right 2 or 3 views (02/02/2025 12:10 PM EDT) Anatomical Region Laterality Modality Lower Extremities, Hip Right Radiograp hic Imaging 02/02/2025 12:3 2 PM EDT Narrative 02/02/2025 12:33 PM EDT TITLE OF EXAM: XR HIP 2 OR 3 VW RIGHT REASON FOR EXAM: Chronic right hip pain. TECHNIQUE: 3 radiographs of the pelvis and right hip COMPARISONS: None. FINDINGS: No fracture. Anatomic alignment of the femoroacetabular joints, sacroiliac joints, and symphysis pubis. Mild to moderate bilateral femoroacetabular joint osteoarthrosis with marginal osteophyte formation and subchondral/subcortical cysts, primarily about the acetabular rims. There is mild bilateral femoral head periarticular osseous remodeling. Joint spaces are fairly well-preserved. No focal soft tissue abnormality. IMPRESSION: No fracture or dislocation. Osteoarthrosis as detailed. DICTATED ON: 02/02/2025 10:31 AM This report has been electronically signed and approved by the interpreting radiologist. Procedure Note Davion Browning MD - 02/02/2025 TITLE OF EXAM: XR HIP 2 OR 3 VW RIGHT REASON FOR EXAM: Chronic right hip pain. TECHNIQUE: 3 radiographs of the pelvis and right hip COMPARISONS: None. FINDINGS: No fracture. Anatomic alignment of the femoroacetabular joints, sacroiliacjoints, and symphysis pubis. Mild to moderate bilateral femoroacetabularjoint osteoarthrosis with marginal osteophyte formation andsubchondral/subcortical cysts, primarily about the acetabular rims. Thereis mild bilateral femoral head periarticular osseous remodeling. Jointspaces are fairly well-preserved. No focal soft tissue abnormality. IMPRESSION: No fracture or dislocation. Osteoarthrosis as detailed. DICTATED ON: 02/02/2025 10:31 AM This report has been electronically signed and approved by theinterpreting radiologist. us Prasad Melchor MD IMG XR PROCEDURES Final Resu lt * Bilateral screening mammogram with tomosynthesis (03/02/2024 11:53 AM EDT) Anatomical Region Laterality Modality Breast Bilateral Mammography 03/02/2024 12:0 3 PM EDT Impressions 03/02/2024 12:11 PM EDT BIRADS 2 - Benign Follow-up: Routine Screening Mamm Board Certified Radiologists. Accredited by the ACR and FDA. MAMMOGRAPHY IS VERY IMPORTANT TO YOUR HEALTH. THE [place] [employer] GUIDELINES RECOMMEND THAT WOMEN 40 YEARS OF AGE AND OLDER SHOULD HAVE A MAMMOGRAM EVERY YEAR. A REMINDER LETTER WILL BE SENT AT THE APPROPRIATE TIME. THIS FACILITY UTILIZES A REMINDER SYSTEM TO ENSURE ALL PATIENTS RECEIVE REMINDER NOTIFICATIONS AT THE APPROPRIATE TIME BASED ON THE RECOMMENDATIONS OF THIS EXAM. THIS INCLUDES REMINDERS FOR ROUTINE SCREENING MAMMOGRAMS, DIAGNOSTIC MAMMOGRAMS IN WHICH THE PATIENT IS ASKED TO RETURN FOR ADDITIONAL VIEWS, OR OTHER BREAST IMAGING INTERVENTIONS WHEN APPROPRIATE. THE PATIENT WILL BE PLACED IN THE APPROPRIATE REMINDER SYSTEM INCLUDING A REMINDER AT THE APPROPRIATE TIME FOR ANY PENDING ADDITIONAL VIEWS. TRANSCRIBED BY: ELECTRONICALLY SIGNED BY: Adrien Dominguez MD Narrative 03/02/2024 12:11 PM EDT EXAMINATION: BI MAMMOGRAM SCREENING TOMOSYNTHESIS BILATERAL CLINICAL HISTORY:breast ca screening COMPARISON: February 04, 2023 RESULT: Digital mammography and 3D tomosynthesis of bilateral breasts was performed. Density: Scattered fibroglandular density [2] There is no suspicious mass, asymmetry, architectural distortion, or calcification. Typically benign calcifications. Overall appearance stable. Procedure Note Adrien Dominguez MD - 03/02/2024 EXAMINATION: BI MAMMOGRAM SCREENING TOMOSYNTHESIS BILATERAL CLINICAL HISTORY:breast ca screening COMPARISON: February 04, 2023 RESULT: Digital mammography and 3D tomosynthesis of bilateral breasts wasperformed. Density: Scattered fibroglandular density [2] There is no suspicious mass, asymmetry, architectural distortion, orcalcification. Typically benign calcifications. Overall appearancestable. IMPRESSION: BIRADS 2 - Benign Follow-up: Routine Screening Mamm Board Certified Radiologists. Accredited by the ACR and FDA. MAMMOGRAPHY IS VERY IMPORTANT TO YOUR HEALTH. THE [place] [employer] SOCIETY[employer]UIDELINES RECOMMEND THAT WOMEN 40 YEARS OF AGE AND OLDER SHOULD HAVE AMAMMOGRAM EVERY YEAR. A REMINDER LETTER WILL BE SENT AT THE APPROPRIATE TIME. THIS FACILITYUTILIZES A REMINDER SYSTEM TO ENSURE ALL PATIENTS RECEIVE REMINDERNOTIFICATIONS AT THE APPROPRIATE TIME BASED ON THE RECOMMENDATIONS OF THISEXAM. THIS INCLUDES REMINDERS FOR ROUTINE SCREENING MAMMOGRAMS, DIAGNOSTICMAMMOGRAMS IN WHICH THE PATIENT IS ASKED TO RETURN FOR ADDITIONAL VIEWS,OR OTHER BREAST IMAGING INTERVENTIONS WHEN APPROPRIATE. THE PATIENT WILLBE PLACED IN THE APPROPRIATE REMINDER SYSTEM INCLUDING A REMINDER AT THEAPPROPRIATE TIME FOR ANY PENDING ADDITIONAL VIEWS. TRANSCRIBED BY: ELECTRONICALLY SIGNED BY: Adrien Dominguez MD Prasad Melchor MD IMG BI PROCEDURES Final Resu lt * Colonoscopy (02/17/2016 12:00 PM EDT) Anatomical Region Laterality Modality Endoscopy 02/17/2016 12:0 0 PM EDT Narrative 02/19/2016 12:00 PM EDT PERFORMED AT [facility] LOCATION:[id number] Negative Procedure Note CONVERSION, GENERIC - 04/01/2023 PERFORMED AT [facility] LOCATION:[id number] Negative Prasad Melchor MD ENDOSCOPY PROCEDURE ORDERABL ES Final Result from Last 3 Months or Most Recently Relevant to Health Maintenance Insurance [employer] Advance Directives Documents on File Type Date Recorded Patient Manager Copy Expl anation Advance Directives and Living Will 09/25/2021 2014-03-21 Power Of Rounder And Backer Care Teams Master Merchandiser Relationship Specialty Start Date End Date Prasad Melchor MD PCP - General Family Medicine 05/24/23
--- OUTSIDE RECORDS SUMMARY | 2025-04-10 07:09 | XMS_ITS | Encounter Summary ---
Author Organization [facility] Address [address] [place] [address] Care Team Providers Care Community Facilitator Name Role Phone Prasad Melchor MD Primary Care Provider [phone] Encounter Details Date Type Department Care Team (Late st Contact Info) Description 03/07/2025 Orders Only [facility] [address] [place] [address] Prasad Melchor MD [address] [place] [address] Social History Tobacco Use Types Packs/Day Years [...] on filedocumented in this encounter Care Teams Community Facilitator Relationship Specialty Start Date End Date Prasad Melchor MD PCP - General Family Medicine 05/24/23 documented as of this encounter
--- OUTSIDE RECORDS SUMMARY | 2025-04-10 07:09 | XMS_ITS | Encounter Summary ---
Author Organization [facility] Address [address] [place] [address] Care Team Providers Care Motor Route Carrier Name Role Phone Prasad Melchor MD Primary Care Provider + [phone] Encounter Details Date Type Department Care Team (Latest Contact Info) Description 04/02/2025 Travel Social History Tobacco Use Types Packs/Day Years [...] on filedocumented in this encounter Care Teams Motor Route Carrier Relationship Specialty Start Date End Date Prasad Melchor MD PCP - General Family Medicine 05/24/23 documented as of this encounter
--- OUTSIDE RECORDS SUMMARY | 2025-04-10 07:09 | XMS_ITS | Encounter Summary ---
Author Organization [facility] Address [address] [place] [address] Care Team Providers Care Uniform Maker Name Role Phone Prasad Melchor MD Primary Care Provider + [phone] Reason for Visit * Reason Onset Date Comments Results 03/29/2025 Encounter Details Date Type Department Care Team (Late st Contact Info) Description 03/29/2025 Telephone [facility] [address] [place] [id number] Tiffany Yost MA Results Social History Tobacco Use Types Packs/Day Years [...] on file documented as of this encounter Miscellaneous Notes * Telephone Encounter - Tiffany Yost MA - 03/29/2025 1:32 PM EDT states that he will order everything from Wednesday OV * Telephone Encounter - Tiffany Yost MA - 03/29/2025 1:25 PM EDT February, can you follow-up And [...] testing and I will have my medical certification specialist follow-up on this as there is an active order. We reviewed the CT scan and she does have the dyspnea with exertion that resolves with rest and by CT scan she has coronary artery atherosclerosis. At this point she should have diagnostic evaluationwith an exercise stress test. She would prefer to get this done it [facility]. 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 The [...] dedicated renal ultrasound to be done at [facility]. documented in this encounter Plan of Treatment Not on file documented as of this encounter Visit Diagnoses Not on filedocumented in this encounter Care Teams Uniform Maker Relationship Specialty Start Date End Date Prasad Melchor MD PCP - General Family Medicine 05/24/23 documented as of this encounter
--- OUTSIDE RECORDS SUMMARY | 2025-04-10 07:09 | XMS_ITS | Encounter Summary ---
Author Organization [facility] Address [address] [place] [address] Care Team Providers Care Band Salvager Name Role Phone Prasad Melchor MD Primary Care Provider [phone] Encounter Details Date Type Department Care Team (Late st Contact Info) Description 03/03/2024 Orders Only [facility] [address] [place] [address] Prasad Melchor MD [address] [facility] [address] [place] [address] Social History Tobacco Use Types Packs/Day Years [...] on filedocumented in this encounter Care Teams Band Salvager Relationship Specialty Start Date End Date Prasad Melchor MD PCP - General Family Medicine 05/24/23 documented as of this encounter
--- OUTSIDE RECORDS SUMMARY | 2025-04-10 07:09 | XMS_ITS | Encounter Summary ---
Author Organization [facility] Address [address] [place] [address] Care Team Providers Care Digital Product Manager Name Role Phone Prasad Melchor MD Primary Care Provider [phone] Encounter Details Date Type Department Care Team (Late st Contact Info) Description 03/31/2024 Orders Only [facility] [address] [place] [address] Prasad Melchor MD [address] [facility] [address] [place] [address] Social History Tobacco Use Types Packs/Day Years [...] on filedocumented in this encounter Care Teams Digital Product Manager Relationship Specialty Start Date End Date Prasad Melchor MD PCP - General Family Medicine 05/24/23 documented as of this encounter
--- OUTSIDE RECORDS SUMMARY | 2025-04-10 07:09 | XMS_ITS | Encounter Summary ---
Author Organization [facility] Address [address] [place] [address] Care Team Providers Care Production Boring Machine Operator Name Role Phone Prasad Melchor MD Primary Care Provider [phone] Encounter Details Date Type Department Care Team (Late st Contact Info) Description 02/14/2024 Orders Only [facility] [address] [place] [address] Prasad Melchor MD [address] [facility] [address] [place] [address] Social History Tobacco Use Types Packs/Day Years [...] on filedocumented in this encounter Care Teams Production Boring Machine Operator Relationship Specialty Start Date End Date Prasad Melchor MD PCP - General Family Medicine 05/24/23 documented as of this encounter
== END 2025-04-10 07:08 | disposition home or self-care (01) ==
LOC: US 07:07
PROVIDERS: PCP Family Medicine; Visit Provider Family Medicine
DX: R93.5 Abnormal findings on diagnostic imaging of other abdominal regions, including retroperitoneum (principal); N28.89 Other specified disorders of kidney and ureter; N28.1 Cyst of kidney, acquired
CPT/HCPCS: 76770

== ENCOUNTER 2025-04-12 08:55 | Outpatient (OUT) | payer OTHER, SELFPAY ==
[2025-04-12 09:05] LABS: Hemoglobin 14.6 g/dL (12.0-16.0)
[2025-04-12] MEDS: ALBUTEROL SULFATE 2.5 MG/3 ML VIAL NEB IH (09:45)
--- NOTE | 2025-04-12 09:46 | RT_ITS ---
[facility] Test Date: 2025-04-12 Pat Name: LUANN STEVENS Department: Room: - Gender: Female Plant Guard: Bijan Sethi RRT : 1960 Requested By: AVELINO CLAYTON Order Number: [id number] Reading MD: Declan Glover Interpretive Statements Pulmonary function testing was completed according to ATS criteria. Findings were considered accurate and reproducible. Both pre- and post-bronchodilator values utilized for spirometry. Spirometry (based on pre-bronchodilator values): -FEV1/FVC: Normal @ 78% -FEV1: Low normal @ 82% -FVC: Low normal @ 81% -There is no significant bronchodilator response. Lung volumes by plethysmography (based on pre-bronchodilator values): -RV: Normal @ 97% -TLC: Normal @ 96% Diffusion capacity: -DLCO: Moderate reduction @ 62% when corrected for Hb 14.6g/dL Impressions: -Technically normal spirometry, though it trends towards a mild restrictive pattern; however, lung volumes are normal. There is an isolated moderately reduced diffusion impairment. This pattern can be seen in, but not restricted to, cardiopulmonary vascular disorders, early interstitial lung disease, and early emphysema. Clinical correlation required. Electronically Signed On 04-12-2025 12:23:16 EDT by Declan Glover
== END 2025-04-12 08:56 | disposition home or self-care (01) ==
LOC: CARD 08:55
PROVIDERS: PCP Family Medicine; Visit Provider Family Medicine
DX: R06.02 Shortness of breath (principal); R53.82 Chronic fatigue, unspecified; Z87.891 Personal history of nicotine dependence
CPT/HCPCS: 36415; 85018; 94060; 94726; 94729